=== PATIENT | female | born 2000 | race American Indian/Alaskan Native ===

== ENCOUNTER 2021-03-20 19:28 | Emergency (ER) | payer MEDICAID ==
[2021-03-20 20:49] VITALS: BP 125/64
--- NOTE | 2021-03-20 21:09 | Emergency Department Report ---
ED General Adult HPI - General Chief complaint: Urogenital-Female Stated complaint: POSSIBLE UTI Time Seen by Provider: 03/20/21 20:48 Source: patient Mode of arrival: Ambulatory Limitations: No Limitations - History of Present Illness Initial comments: 20-year-old -British female patient presents with complaints of burning urination x2 weeks. Patient states her symptoms improved with Azo, but are now worsening. She denies any hematuria, vaginal discharge, dyspareunia, fever/chills/sweats, abdominal pain, or flank pain. Patient states her symptoms feel similar to when she has had a UTI in the past. -: Gradual - Related Data Previous Rx's Medication Instructions Recorded Last Taken Type Ciprofloxacin HCl 500 mg PO BID 3 Days #6 tablet 03/20/21 Unknown Rx Allergies Allergy/AdvReac Type Severity Reaction Status Date / Time No Known Allergies Allergy Unverified 03/20/21 20:15 ED Review of Systems ROS: Stated complaint: POSSIBLE UTI Other details as noted in HPI Constitutional: denies: diaphoresis, fever, malaise, weakness Respiratory: denies: cough, shortness of breath Cardiovascular: denies: chest pain Gastrointestinal: denies: abdominal pain, nausea, vomiting Genitourinary: dysuria, frequency. denies: urgency, hematuria, discharge, abnormal menses, dyspareunia Skin: denies: change in color ED Past Medical Hx - Past Medical History Previous Medical History?: No - Surgical History Past Surgical History?: No - Social History Smoking Status: Never Smoker Substance Use Type: None - Medications Home Medications: Home Medications Medication Instructions Recorded Confirmed Last Taken Type Ciprofloxacin HCl 500 mg PO BID 3 Days #6 tablet 03/20/21 Unknown Rx ED Physical Exam - General Limitations: No Limitations General appearance: alert, in no apparent distress - Head Head exam: Present: atraumatic, normocephalic - Eye Eye exam: Present: normal appearance. Absent: scleral icterus - Neck Neck exam: Present: normal inspection - Respiratory Respiratory exam: Absent: respiratory distress - Cardiovascular Cardiovascular Exam: Present: regular rate - GI/Abdominal GI/Abdominal exam: Present: soft. Absent: distended, tenderness, guarding, rebound, rigid - Extremities Exam Extremities exam: Present: full ROM - Back Exam Back exam: Present: full ROM. Absent: CVA tenderness (R), CVA tenderness (L) - Neurological Exam Neurological exam: Present: alert, oriented X3, normal gait - Psychiatric Psychiatric exam: Present: normal affect, normal mood - Skin Skin exam: Present: warm, dry, intact, normal color. Absent: rash ED Course Vital Signs 03/20/21 20:15 Temperature 98.6 F Pulse Rate 69 Respiratory 20 Rate Blood Pressure 125/64 O2 Sat by Pulse 99 Oximetry ED Medical Decision Making - Medical Decision Making 20-year-old -[place] female patient presents with complaints of burning urination x2 weeks. Patient states her symptoms improved with Azo, but are now worsening. She denies any hematuria, vaginal discharge, dyspareunia, fever/ chills/sweats, abdominal pain, or flank pain. Patient states her symptoms feel similar to when she has had a UTI in the past. Upon further questioning, patient states she has been taking some leftover Keflex for the past day. UA is normal however this may be due to her antibiotic use. Given her symptoms, will treat for UTI with Cipro. Recommend follow-up with primary care doctor in 2 to 3 days. Strict return precautions were discussed in great detail with patient who verbalized understanding. Critical care attestation.: If time is entered above; I have spent that time in minutes in the direct care of this critically ill patient, excluding procedure time. ED Disposition Clinical Impression: Dysuria Disposition: DC-01 TO HOME OR SELFCARE Is pt being admited?: No Condition: Stable Instructions: Urinary Tract Infection, Adult, [id number], Dysuria Prescriptions: Ciprofloxacin HCl 500 mg PO BID 3 Days #6 tablet Referrals: [facility] [Provider Group] - 2-3 Days
[2021-03-20 21:28] LABS: HCG Qualitative,Urine Negative (Negative)
[2021-03-20 21:35] LABS: Bilirubin,Urine NEG (Negative); Blood,Urine NEG (Negative); Color,Urine Yellow (Yellow); Mucus,Urine FEW /HPF; Protein,Urine <15 mg/dL mg/dL (Negative); Urobilinogen,Urine < 2.0 mg/dL (<2.0)
== END 2021-03-20 22:00 | disposition home or self-care (01) ==
LOC: ED 19:28
DX: R30.0 Dysuria (principal); Z79.2 Long term (current) use of antibiotics
CPT/HCPCS: 81001; 81025

== ENCOUNTER 2021-04-22 12:59 | Emergency (ER) | payer MEDICAID ==
[2021-04-22 14:17] VITALS: BP 128/54
[2021-04-22] MEDS ORDERED: KETOROLAC 60 MG/2 ML INJ IM ONE ×2 (14:19→17:00)
--- NOTE | 2021-04-22 14:24 | Emergency Department Report ---
ED General Adult HPI - General Chief complaint: Back Pain/Injury Stated complaint: FALL, BACK PAIN Time Seen by Provider: 04/22/21 14:18 Source: patient Mode of arrival: Wheelchair Limitations: Physical Limitation - History of Present Illness Initial comments: 20-year-old -[place] female patient presents with complaints of left lower back pain radiating down her left leg starting last night. Patient states her pain began after a fall injury while trying to catch her baby. She denies direct impact to her spinal cord, numbness/tingling/weakness in her limbs, loss of bladder/bowel control, or abdominal pain. Patient rates her current pain as a 10/10 in severity and states it did not improve with ibuprofen. She describes the pain as burning and shooting -: Sudden - Related Data Previous Rx's Medication Instructions Recorded Last Taken Type Ciprofloxacin HCl 500 mg PO BID 3 Days #6 tablet 03/20/21 Unknown Rx Acetaminophen/Codeine [Tylenol 1 tab PO Q8H PRN #4 tab 04/22/21 Unknown Rx /Codeine # 3 tab] Diclofenac Sodium 50 mg PO TID PRN #21 tablet. 04/22/21 Unknown Rx methocarbamoL [Methocarbamol] 750 - 1,500 mg PO TID PRN #30 04/22/21 Unknown Rx tablet Allergies Allergy/AdvReac Type Severity Reaction Status Date / Time No Known Allergies Allergy Unverified 03/20/21 20:15 ED Review of Systems ROS: Stated complaint: FALL, BACK PAIN Other details as noted in HPI Gastrointestinal: denies: abdominal pain Musculoskeletal: back pain. denies: joint swelling, arthralgia Skin: denies: change in color Neurological: denies: numbness, paresthesias ED Past Medical Hx - Past Medical History Previous Medical History?: No - Surgical History Past Surgical History?: No - Social History Smoking Status: Never Smoker Substance Use Type: None - Medications Home Medications: Home Medications Medication Instructions Recorded Confirmed Last Taken Type Ciprofloxacin HCl 500 mg PO BID 3 Days #6 tablet 03/20/21 Unknown Rx Acetaminophen/Codeine [Tylenol 1 tab PO Q8H PRN #4 tab 04/22/21 Unknown Rx /Codeine # 3 tab] Diclofenac Sodium 50 mg PO TID PRN #21 tablet. 04/22/21 Unknown Rx methocarbamoL [Methocarbamol] 750 - 1,500 mg PO TID PRN #30 04/22/21 Unknown Rx tablet ED Physical Exam - General Limitations: Physical Limitation General appearance: alert, in no apparent distress - Head Head exam: Present: atraumatic, normocephalic - Neck Neck exam: Present: normal inspection - Respiratory Respiratory exam: Absent: respiratory distress - Cardiovascular Cardiovascular Exam: Present: regular rate - GI/Abdominal GI/Abdominal exam: Present: soft. Absent: tenderness - Back Exam Back exam: Present: paraspinal tenderness (Left lower lumbar). Absent: vertebral tenderness - Expanded Back Exam Expanded Back exam: Absent: saddle anesthesia Back exam: Sciatic Notch Tenderness: Left, Positive Straight Leg Raise: Left - Neurological Exam Neurological exam: Present: alert, oriented X3. Absent: motor sensory deficit - Psychiatric Psychiatric exam: Present: normal affect, normal mood - Skin Skin exam: Present: warm, dry, intact, normal color. Absent: rash ED Course Vital Signs 04/22/21 14:16 Temperature 98.1 F Pulse Rate 97 H Respiratory 18 Rate Blood Pressure 128/54 O2 Sat by Pulse 100 Oximetry ED Medical Decision Making - Medical Decision Making 20-year-old -[place] female patient presents with complaints of left lower back pain radiating down her left leg starting last night. Patient states her pain began after a fall injury while trying to catch her baby. She denies direct impact to her spinal cord, numbness/tingling/weakness in her limbs, loss of bladder/bowel control, or abdominal pain. Patient rates her current pain as a 10/10 in severity and states it did not improve with ibuprofen. She describes the pain as burning and shooting + Straight leg raise test and sciatic notch tenderness on exam. Exam and history appear consistent with sciatica. Will treat with NSAIDs, Robaxin, icing, and stretches. Recommend follow-up with PCP in 3 to 5 days. Patient is well-appearing, her vitals are normal, she is stable for discharge home. Strict return precautions were discussed in detail with patient who verbalizes understanding. Critical care attestation.: If time is entered above; I have spent that time in minutes in the direct care of this critically ill patient, excluding procedure time. ED Disposition Clinical Impression: Low back pain with left-sided sciatica Disposition: TO HOME OR SELFCARE Is pt being admited?: No Condition: Stable Instructions: Sciatica Prescriptions: Diclofenac Sodium 50 mg PO TID PRN #21 tablet. PRN Reason: Pain methocarbamoL [Methocarbamol] 750 - 1,500 mg PO TID PRN #30 tablet PRN Reason: Muscle spasm/tightness Acetaminophen/Codeine [Tylenol /Codeine # 3 tab] 1 tab PO Q8H PRN #4 tab PRN Reason: Pain , Severe (7-10) Referrals: [facility] [Provider Group] - 3-5 Days Forms: Work/School Release Form(ED)
== END 2021-04-22 17:59 | disposition home or self-care (01) ==
LOC: ED 12:59
DX: M54.42 Lumbago with sciatica, left side (principal); W18.39XA Other fall on same level, initial encounter; Y93.9 Activity, unspecified; Y92.89 Other specified places as the place of occurrence of the external cause; Y99.8 Other external cause status
CPT/HCPCS: 96372; 99283; J1885